=== PATIENT | female | born 1960 | race African-American/Black ===

== ENCOUNTER 2024-01-06 11:22 | Inpatient (IN) | payer OTHER ==
[2024-01-06 12:09] VITALS: BMI 20.7
[2024-01-06] MEDS ORDERED: guaiFENesin 600 MG TABLET.ER (FP) PO PRN (13:31)
[2024-01-06] MEDS ORDERED: hydrOXYzine PAMOATE 25 MG CAPSULE (FP) PO PRN (13:31)
[2024-01-06] MEDS ORDERED: BENZOCAINE/MENTHOL (CHLORASEPTIC ) LOZENGE MM PRN (13:31)
[2024-01-06] MEDS ORDERED: BENZONATATE 200 MG CAPSULE PO PRN (13:31)
[2024-01-06] MEDS ORDERED: LOPERAMIDE HCL 2 MG CAPSULE PO PRN (13:31)
[2024-01-06] MEDS ORDERED: P-EPHED 60MG/TRIPROLIDI 2.5MG TABLET PO PRN (13:31)
[2024-01-06] MEDS ORDERED: MAGNESIUM HYDROX 2400MG/30ML ORAL SUSPENSION 30 ML CUP PO PRN (13:31)
[2024-01-06] MEDS ORDERED: POLYETHYLENE GLYCOL (HEALTHYLAX) 3350 17 GM PACKET PO PRN (13:31)
[2024-01-06] MEDS ORDERED: NICOTINE POLACRILEX 2 MG GUM BUC PRN (13:31)
[2024-01-06] MEDS: ASPIRIN COATED 81 MG TABLET.EC PO SCH (16:23)
[2024-01-06] MEDS ORDERED: ASPIRIN 81 MG CHEWABLE TABLETS ONE (16:39)
[2024-01-06] MEDS: TUBERCULIN PPD 5 TU/0.1ML VIAL ID ONE (17:58)
[2024-01-06] MEDS: THIAMINE 100 MG TABLET PO SCH (21:34)
[2024-01-06] MEDS: MELATONIN 5 MG TABLETS PO SCH (21:34)
[2024-01-07] MEDS: PRENATAL VITAMINS W/ FOLIC ACID TABLET (FP) PO SCH (10:18)
[2024-01-07] MEDS: IBUPROFEN 600 MG TABLET (FP) PO PRN (10:22)
[2024-01-07 12:23] LABS: HEMATOCRIT 38.9 % (32.4-45.2); MCH 31.8 pg (25.7-33.7); MCHC 33.5 g/dl (32.0-36.0); MEAN CELL VOLUME 94.8 fl (80-96); MEAN PLT VOLUME 9.2 fl (7.5-11.1); PLATELET COUNT 219 10^3/uL (134-434); RDW 13.2 % (11.6-15.6); WHITE BLOOD COUNT 4.6 K/mm3 (4.0-10.0)
[2024-01-07 12:24] LABS: CHLORIDE 108 mmol/L (98-107); POTASSIUM 3.4 mmol/L (3.5-5.1); SODIUM 141 mmol/L (136-145)
[2024-01-07 12:50] LABS: ALBUMIN 3.2 g/dl (3.4-5.0); ANION GAP 5 mmol/L (4-13); CALCIUM 8.7 mg/dL (8.5-10.1); CO2 28 mmol/L (21-32); GLUCOSE,RANDOM 113 mg/dL (74-106)
[2024-01-07 12:51] LABS: BLOOD UREA NITROGEN 16.8 mg/dL (7-18)
[2024-01-07 12:53] LABS: SGPT/ALT 14 U/L (13-61)
[2024-01-07 12:54] LABS: CREATININE 0.7 mg/dL (0.55-1.3); SGOT/AST 12 U/L (15-37)
[2024-01-07 12:55] LABS: BILIRUBIN,TOTAL 0.5 mg/dL (0.2-1); TOT PROT 5.8 g/dl (6.4-8.2)
[2024-01-07 12:56] LABS: ALK PHOS 75 U/L (45-117)
[2024-01-07 12:58] LABS: SYPHILIS W/ RPR CONF NON-REACTIVE (NONREACTIVE)
[2024-01-07] MEDS: PNEUMOC 20-VAL CONJ-DIP CRM/PF 0.5 ML SYRINGE IM ONE (14:28)
[2024-01-07] MEDS: FAMOTIDINE 10 MG TABLET PO SCH (15:02)
[2024-01-07] MEDS: QUEtiapine FUMARATE 100 MG TABLET (FP) PO SCH (21:01)
[2024-01-07 22:12] LABS: URINE APPEARANCE CLEAR; URINE BILIRUBIN NEGATIVE (NEGATIVE); URINE COLOR YELLOW; URINE GLUCOSE (UA) NEGATIVE (NEGATIVE); URINE KETONE NEGATIVE (NEGATIVE); URINE LEUK ESTERASE 2+ (NEGATIVE); URINE NITRITE NEGATIVE (NEGATIVE); URINE PROTEIN NEGATIVE (NEGATIVE); URINE UROBILINOGEN 0.2 mg/dL (0.2-1.0)
[2024-01-09] MEDS: MAG HYDROX/AL HYDROX/SIMETH 30 ML UNIT-DOSE CUP PO PRN (18:39)
[2024-01-09] MEDS ORDERED: POTASSIUM CHLORIDE ORAL LIQUID 20 MEQ/15 ML PO ONE (19:00)
[2024-01-09] MEDS: POTASSIUM CHLORIDE ORAL LIQUID 20 MEQ/15 ML PO ONE (19:33)
[2024-01-09] MEDS: MELATONIN 5 MG TABLETS PO ONE (22:19)
[2024-01-10] MEDS: QUEtiapine FUMARATE 200 MG TABLET PO SCH (21:08)
[2024-01-11] MEDS: ACETAMINOPHEN 325 MG TABLET (FP) PO PRN (21:16)
[2024-01-13] MEDS: BACLOFEN 10 MG TABLET (FP) PO SCH (13:49)
[2024-01-13] MEDS: NALTREXONE HCL 50 MG TABLET PO ONE (13:49)
[2024-01-14] MEDS ORDERED: NALTREXONE HCL 50 MG TABLET PO SCH (10:00)
[2024-01-14] MEDS: NALTREXONE HCL 50 MG TABLET PO SCH (10:19)
[2024-01-14] MEDS ORDERED: LACTULOSE 20 GM/30 ML UDC (FOR ORAL USE ONLY) PO PRN (17:02)
[2024-01-15] MEDS: CHOLECALCIFEROL (VIT D3) 400 UNIT (10 MCG) TABLET PO SCH (10:21)
[2024-01-15] MEDS: NALTREXONE HCL 50 MG TABLET PO SCH (10:21)
[2024-01-15 11:57] LABS: INR 0.89 (0.83-1.09); PROTHROMBIN TIME (PATIENT) 10.1 SEC (9.7-13.0)
[2024-01-15] MEDS: LACTULOSE 20 GM/30 ML UDC (FOR ORAL USE ONLY) PO SCH (14:59)
[2024-01-17] MEDS: RIFAXIMIN 550 MG TABLET PO SCH (10:31)
[2024-01-17] MEDS: DOCUSATE SODIUM 100 MG CAPSULE (FP) PO ONE (19:36)
[2024-01-18] MEDS: IBUPROFEN 400 MG TABLET (FP) PO PRN (21:33)
[2024-01-18] MEDS: cloNIDine HCL 0.1 MG TABLET PO ONE (22:48)
[2024-01-19 05:11] VITALS: BP 155/83; PULSE 58; RESP 18; TEMP 97.1
[2024-01-19] MEDS ORDERED: NALTREXONE HCL 50 MG TABLET PO SCH (10:00)
== END 2024-01-19 06:15 | disposition left against medical advice (07) | DRG 770 ==
LOC: YASAS 11:22 → Y5N 15:12
PROVIDERS: ADMIT Allergy & Immunology; ATTEND Psychiatry & Neurology Pain Medicine
PROC: HZ42ZZZ Group Counseling for Substance Abuse Treatment, Cognitive-Behavioral (ICD-10-PCS; principal; 2024-01-06)
DX: F10.20 Alcohol dependence, uncomplicated (principal); F14.20 Cocaine dependence, uncomplicated; F12.20 Cannabis dependence, uncomplicated; F17.210 Nicotine dependence, cigarettes, uncomplicated; F31.9 Bipolar disorder, unspecified; F19.282 Other psychoactive substance dependence with psychoactive substance-induced sleep disorder; F19.24 Other psychoactive substance dependence with psychoactive substance-induced mood disorder; E72.20 Disorder of urea cycle metabolism, unspecified; E87.6 Hypokalemia; I10 Essential (primary) hypertension; D55.9 Anemia due to enzyme disorder, unspecified; M54.30 Sciatica, unspecified side; R76.11 Nonspecific reaction to tuberculin skin test without active tuberculosis; Z62.810 Personal history of physical and sexual abuse in childhood; Z63.8 Other specified problems related to primary support group; Z63.0 Problems in relationship with spouse or partner; Z91.410 Personal history of adult physical and sexual abuse; Z99.89 Dependence on other enabling machines and devices
CPT/HCPCS: 0241U-QW; 36415; 71046-TC-FY; 80053; 80305; 80307; 81003; 82140; 82306; 83735; 84132; 85027; 85610; 86480; 86780; 86803; 87811; 93005; 93010; J0475

== ENCOUNTER 2024-01-19 08:12 | Emergency (ER) | payer OTHER ==
[2024-01-19 09:05] VITALS: TEMP 97.6; BMI 22.2
[2024-01-19 09:07] LABS: BASO % 1.4 % (0-2.0); EOS % 0.5 % (0-4.5); HEMATOCRIT 42.5 % (32.4-45.2); MCH 31.3 pg (25.7-33.7); MEAN CELL VOLUME 94.9 fl (80-96); MEAN PLT VOLUME 9.1 fl (7.5-11.1); MONO % 8.8 % (3.8-10.2); NEUT % 63.3 % (42.8-82.8); PLATELET COUNT 273 10^3/uL (134-434); RBC 4.48 M/mm3 (3.60-5.2); RDW 12.9 % (11.6-15.6); WHITE BLOOD COUNT 5.2 K/mm3 (4.0-10.0)
[2024-01-19] MEDS ORDERED: TRIMETHOBENZAMIDE HCL 200MG/2ML INJ IM ONE (09:10)
[2024-01-19] MEDS ORDERED: ACETAMINOPHEN INJECTION 100 ML IVPB ONE (09:11)
[2024-01-19 09:15] LABS: INR 0.98 (0.83-1.09); PROTHROMBIN TIME (PATIENT) 11.1 SEC (9.7-13.0)
[2024-01-19 09:17] LABS: ACTIVATED PTT 32.8 SECONDS (25.2-36.5)
[2024-01-19] MEDS: ACETAMINOPHEN 1000 MG/100 ML BAG IVPB ONE (09:18)
[2024-01-19] MEDS: TRIMETHOBENZAMIDE HCL 200MG/2ML INJ IM ONE (09:18)
[2024-01-19 09:25] LABS: POTASSIUM 5.4 mmol/L (3.5-5.1)
[2024-01-19 09:26] LABS: CALCIUM 9.5 mg/dL (8.5-10.1)
[2024-01-19 09:27] LABS: ALBUMIN 3.7 g/dl (3.4-5.0); BLOOD UREA NITROGEN 17.8 mg/dL (7-18)
[2024-01-19 09:30] LABS: CREATININE 0.6 mg/dL (0.55-1.3)
[2024-01-19 09:31] LABS: TOT PROT 7.5 g/dl (6.4-8.2)
[2024-01-19 09:32] LABS: BILIRUBIN,TOTAL 0.5 mg/dL (0.2-1)
[2024-01-19 11:35] LABS: CHLORIDE 118 mmol/L (98-107); POTASSIUM 3.5 mmol/L (3.5-5.1); SODIUM 144 mmol/L (136-145)
[2024-01-19 11:36] LABS: ANION GAP 5 mmol/L (4-13); BLOOD UREA NITROGEN 14.9 mg/dL (7-18); CO2 22 mmol/L (21-32); GLUCOSE,RANDOM 79 mg/dL (74-106)
[2024-01-19 11:41] LABS: CREATININE 0.4 mg/dL (0.55-1.3)
[2024-01-19 11:45] LABS: CALCIUM 6.8 mg/dL (8.5-10.1)
[2024-01-19 12:03] LABS: EPI CELLS 24 /uL (0-25.1); HYALINE CASTS 0 /uL (0-3.1); PH,URINE 5.5 (5.0-8.0); URINE APPEARANCE CLEAR; URINE BACTERIA 215 /uL (0-1359); URINE BILIRUBIN NEGATIVE (NEGATIVE); URINE COLOR YELLOW; URINE GLUCOSE (UA) NEGATIVE (NEGATIVE); URINE KETONE NEGATIVE (NEGATIVE); URINE LEUK ESTERASE 1+ (NEGATIVE); URINE NITRITE NEGATIVE (NEGATIVE); URINE PROTEIN NEGATIVE (NEGATIVE); URINE RBC 19 /uL (0-23.9); URINE UROBILINOGEN 0.2 mg/dL (0.2-1.0); URINE WBC 45 /uL (0-25.8)
[2024-01-19] MEDS ORDERED: amLODIPine BESYLATE 5 MG TABLET (FP) ONE (13:23)
[2024-01-19] MEDS: amLODIPine BESYLATE 5 MG TABLET (FP) PO ONE (13:26)
[2024-01-19 14:14] VITALS: BP 169/105; PULSE 71; RESP 16
== END 2024-01-19 14:15 | disposition home or self-care (01) ==
LOC: JER 08:12
PROC: 3E030NZ Introduction of Analgesics, Hypnotics, Sedatives into Peripheral Vein, Open Approach (ICD-10-PCS; principal; 2024-01-19)
PROC: 3E023GC Introduction of Other Therapeutic Substance into Muscle, Percutaneous Approach (ICD-10-PCS; 2024-01-19)
DX: R07.9 Chest pain, unspecified (principal); R11.2 Nausea with vomiting, unspecified; R68.83 Chills (without fever); Z20.822 Contact with and (suspected) exposure to COVID-19
CPT/HCPCS: 0241U-QW; 36415; 71045-TC-FY; 80048; 80053; 81003; 84484; 85025; 85610; 85730; 87086; 99285-25; J0131